=== PATIENT | male | born 1970 | race American Indian/Alaskan Native ===

== ENCOUNTER 2017-09-04 18:01 | Emergency (ER) | payer OTHER ==
--- NOTE | 2017-09-04 18:11 | C.PDOC ---
History Of Present Illness 47 y/o male BIBA for evaluation of left knee pain s/p hitting his knee against a metal switchbox today. Patient states that he is able to bear weight and he is not limping. Patient denies having swelling, weakness, numbness and other complaints at this time. Time Seen by Provider: 09/04/17 18:07 Chief Complaint (Nursing): Lower Extremity Problem/Injury History Per: Patient History/Exam Limitations: no limitations Onset/Duration Of Symptoms: Hrs Current Symptoms Are (Timing): Still Present Past Medical History Reviewed: Historical Data, Nursing Documentation, Vital Signs Vital Signs: Last Vital Signs Temp 99.4 F 09/04/17 18:09 Pulse 86 09/04/17 18:09 Resp 20 09/04/17 18:09 BP 140/90 09/04/17 18:09 Pulse Ox 97 09/04/17 18:09 - Medical History PMH: No Chronic Diseases Other Surgeries: Hx of surgeries Family History: States: No Known Family Hx Review Of Systems Except As Marked, All Systems Reviewed And Found Negative. Musculoskeletal: Positive for: Other (left knee pain) Neurological: Negative for: Weakness, Numbness Physical Exam - Physical Exam Appears: Non-toxic, No Acute Distress Skin: Normal Color, Warm, Dry Head: Atraumatic, Normacephalic Eye(s): bilateral: Normal Inspection Nose: Normal Oral Mucosa: Moist Neck: Supple Chest: Symmetrical Extremity: Normal ROM, No Tenderness, No Swelling Neurological/Psych: Oriented x3, Normal Speech Gait: Steady Medical Decision Making Medical Decision Making: Impression: Left Knee Contusion Plan: --Motrin PO --Tylenol PO --Ice Pack Updates: Patient has been discharged with prescription for Motrin. Disposition Counseled Patient/Family Regarding: Diagnosis, Need For Followup, Rx Given - Disposition Disposition: HOME/ ROUTINE Disposition Time: 18:10 Condition: STABLE Prescriptions: Ibuprofen [Motrin] 600 mg PO TID #15 tab Instructions: Contusion (DC) Forms: General Discharge Instructions, [facility] (Bengali), Work Excuse - POA Present On Arrival: None - Clinical Impression Clinical Impression: Contusion - Scribe Statement The provider has reviewed the documentation as recorded by the Jean Claudeibe Yolanda Stern Provider Attestation: All medical record entries made by the Scribe were at my direction and personally dictated by me. I have reviewed the chart and agree that the record accurately reflects my personal performance of the history, physical exam, medical decision making, and the department course for this patient. I have also personally directed, reviewed, and agree with the discharge instructions and disposition.
[2017-09-04 18:28] VITALS: BP 140/90; PULSE 86; RESP 20; TEMP 99.4; O2SAT 97; BMI 34.7
== END 2017-09-04 18:37 | disposition home or self-care (01) ==
LOC: C.ER 18:01
DX: S80.02XA Contusion of left knee, initial encounter (principal); W22.09XA Striking against other stationary object, initial encounter; Y92.89 Other specified places as the place of occurrence of the external cause; Y99.0 Civilian activity done for income or pay